=== PATIENT | female | born 2000 | race Caucasian/White ===

== ENCOUNTER 2022-05-12 06:50 | Inpatient (IN) ==
[2022-05-12] MEDS ORDERED: LIDOCAINE 1% LOCAL 20 ML VIAL INFIL PRN (08:12)
[2022-05-12] MEDS ORDERED: OXYTOCIN 30 UNITS/500 ML BAG IV PRN ×2 (08:12→09:25)
[2022-05-12 08:56] LABS: Hematocrit (blood only) 39.7 % (37.0-47.0); Hemoglobin 13.3 g/dl (12.0-16.0); Mean Corpuscular Hemoglobin 30.3 pg (25.0-34.0); Mean Corpuscular Hgb Conc 33.5 g/dL (32.0-36.0); Mean Corpuscular Volume 90.4 fL (80.0-100.0); Mean Platelet Volume 11.6 fL (9.4-12.4); Platelet Count 232 K/uL (130-400); RDW Coefficient of Variation 14.6 % (11.5-14.5); RDW Standard Deviation 48.6 fL (36.4-46.3); Red Blood Count 4.39 M/uL (4.20-5.40); White Blood Count 10.34 K/ul (4.8-10.8)
[2022-05-12 09:14] LABS: Albumin Globulin Ratio 1.1 (0.9-2); Albumin Level 3.4 gm/dl (3.4-5.0); BUN Creatinine Ratio 19.2 (10-20); Bilirubin,Total 0.4 mg/dl (0.2-1.0); Calcium 9.2 mg/dl (8.5-10.1); Creatinine Clr Calc Pharmacy 139.6 ml/min; Est GFR (African American) 135.5 ml/min; Est GFR (Non-African American) 116.9 ml/min; Globulin 3.1 gm/dl (2.5-4.0); Potassium 3.7 mmol/L (3.5-5.1); Total Protein 6.5 gm/dl (6.0-8.3)
[2022-05-12] MEDS: LACTATED RINGER'S 1,000 ML IV PRN ×3 (09:49→18:24)
--- NOTE | 2022-05-12 10:55 | History & Physical Report ---
Date of Service May 12, 2022 Assessment & Plan (1) 40 weeks gestation of : (2) PROM (premature rupture of membranes): (3) Gestational hypertension: (4) Thin meconium stained amniotic fluid: Plan Patient has been admitted and iv placed. Labs reviewed and pt aware of likely dx of gest htn as well as other dx above. Rec induction of labor and recommend pitocin and she denies questions. FHTs categ 1. What to expect with meconium noted at time of delivery reviewed and pt denies questions. History of Present Illness Chief Complaint: leaking fluid Primary Care Provider: Jose David Ramirez 21yo at 40+wks with cc of leaking fluid since 5am who presented to LD. Patient called me this am noting leaking fluid, clear to pink tinged and advised to come to LD. Evaluated by nursing with gross srom, green tinged fluid and cx 1cm. Bps elevated on arrival and pt continues to deny aviles or visual change or ruq pain. No n/v. No worsening swelling. PNC uncomplicated PNL rh pos, ri, gbs neg OBH: g1 GYNH: nl paps, no stds Allergies Allergy/AdvReac Type Severity Reaction Status Date / Time No Known Allergies Allergy Verified 05/12/22 07:25 Home Medications Medication Instructions Recorded Confirmed Type prenat.vits,elissa,[id number] 1 tab PO DAILY 09/27/21 05/12/22 History Patient History Medical History (Updated 05/12/22 @ 10:52 by Johnna Willis MD, FACOG) No known health problems Surgical History (Updated 05/12/22 @ 07:25 by Mackenzie Alcala RN) No history of previous surgery Family History (Updated 09/27/21 @ 07:38 by Yuly Cao) Mother Hypertension Other Diabetes Social History Smoking Status: Never smoker Hx Alcohol Use: No Hx Substance Use: No Preferred Language: Slovak Communication Ability: Effective Bookstore Clerk Required: No Beliefs That Will Affect Care: None marital status: marital status details: Presley (24) [phone] Current Living Situation: Spouse Current Living Situation Comment: Presley - current occupational status: employed current occupation: [employer] Other Information That Helps Us Care for You: No Feels Safe at Home: Yes Safety Concerns: Feels Safe At This Time Assistive Devices: None Review of Systems as per Subjective / HPI Physical Exam Constitutional: WD/WN, vitals as above Respiratory: normal respiratory effort, lungs clear to auscultation Cardiovascular: Rate/Rhythm: regular rate and regular rhythm Gastrointestinal (Abdomen): soft gravid nt efw 7-8# Musculoskeletal: no edema nontender calves Neurologic: grossly normal DTRs patellar +2, no clonus Psychiatric: A+Ox3, euthymic affect Genitourinary: Manual OB Exam: + cervical dilation 2 cm, + cervical effacement 60% and + station -1 OB Exam Monitor Tracing: + external FHT monitor used, + external uterine monitor used (irreg), + category I and + normal FHT variability Results & Data ([facility]) Vital Signs (Past 12 Hours) Vital Signs Temp Pulse Resp BP 05/12/22 07:11 98.2 F 20 05/12/22 09:51 112 H 05/12/22 09:51 133/88 05/12/22 09:07 99 H 05/12/22 09:07 140/85 05/12/22 08:26 108 H 05/12/22 08:26 153/96 H 05/12/22 08:11 112 H 05/12/22 08:11 165/102 H 05/12/22 07:56 112 H 05/12/22 07:56 147/99 H 05/12/22 07:41 108 H 05/12/22 07:41 143/100 H 05/12/22 07:26 109 H 05/12/22 07:26 161/98 H 05/12/22 07:08 120 H 157/108 H Coding Level of Care Code None Diagnoses 40 weeks gestation of Z3A.40 PROM (premature rupture of membranes) O42.90 Gestational hypertension O13.9 Thin meconium stained amniotic fluid P96.83
[2022-05-12] MEDS ORDERED: ePHEDrine sulfate 50 MG/ML AMP ONE (11:19)
[2022-05-12] MEDS ORDERED: SODIUM CHLORIDE 0.9% INJ 10 ML VIAL ONE (11:20)
[2022-05-12] MEDS ORDERED: LIDOCAINE 2%/EPINEPHRINE 1:200,000 20 ML SDV ONE ×2 (11:20→21:44)
[2022-05-12] MEDS ORDERED: fentaNYL citrate 100 MCG/2 ML VIAL ONE ×3 (11:20→21:45)
[2022-05-12] MEDS ORDERED: BUPIVACAINE 0.25% 30 ML VIAL ONE (11:20)
[2022-05-12] MEDS ORDERED: fentaNYL 2MCG/ML ROPIVACAINE 1.25MG/ML 100 ML BAG EPI ONE (11:21)
--- NOTE | 2022-05-12 12:18 | Anesthesiology Consultation ---
Date of Service May 12, 2022 Assessment & Plan Chart Review Chart Review: Acceptable Risk for Labor Epidural Consults Requested none History Height/Weight Height: 5 ft 3 in Weight: 104.326 kg Allergies Allergy/AdvReac Type Severity Reaction Status Date / Time No Known Allergies Allergy Verified 05/12/22 07:25 Medications Home Medications Medication Instructions Recorded Confirmed Last Taken prenat.vits,elissa,jcx-zgby-[id number] 1 tab PO DAILY 09/27/21 05/12/22 05/11/22 20:00 Active Medications Generic Name Dose Route Start Last Admin Trade Name Freq PRN Reason Stop Dose Admin Lactated Ringer's 1,000 mls @ 125 mls/hr 05/12/22 08:12 05/12/22 12:15 Lr IV 05/14/22 08:11 125 mls/hr .Q8H PRN Infusion L&D Protocol Protocol Oxytocin 30 units in 500 mls @ 7 mls/hr 05/12/22 09:25 05/12/22 12:15 Pitocin IV 05/14/22 09:24 0.54 units/hr .Q24H PRN 9 mls/hr Labor Induction/Augmentation Titration Protocol 0.42 UNITS/HR Past Medical History Medical History (Updated 05/12/22 @ 10:52 by Johnna Willis MD, FACOG) No known health problems Past Family History Family History (Updated 09/27/21 @ 07:38 by Yuly Cao) Mother Hypertension Other Diabetes Past Surgical History Surgical History (Updated 05/12/22 @ 07:25 by Mackenzie Alcala RN) No history of previous surgery Social History Smoking Status: Never smoker Hx Alcohol Use: No Hx Substance Use: No Physical Exam Vital Signs Last Vital Signs Temp 36.7 C 05/12/22 11:04 Pulse 99 H 05/12/22 12:17 Resp 20 05/12/22 11:04 BP 133/76 05/12/22 12:17 Pulse Ox 96 05/12/22 12:16 Testing Laboratory Results 05/12/22 08:42 05/12/22 08:42 Blood Type O Positive 05/12/22 08:42 Antibody Screen NEGATIVE 05/12/22 08:42
[2022-05-12] MEDS ORDERED: NALBUPHINE HCL INJ 10 MG/ML AMP IV PRN (12:20)
[2022-05-12] MEDS ORDERED: NALOXONE HCL 1 MG in SODIUM CHLORIDE 0.9% 1000ML 1,000 ML IV PRN (12:20)
[2022-05-12] MEDS ORDERED: NALOXONE HCL 0.4 MG/1 ML VIAL/CARP IV PRN (12:20)
[2022-05-12] MEDS ORDERED: diphenhydrAMINE 50 MG/ML VIAL IV PRN (12:20)
[2022-05-12] MEDS ORDERED: ePHEDrine sulfate 50 MG/ML AMP IV PRN (12:20)
--- NOTE | 2022-05-12 14:53 | Obstetrical Progress Note ---
Date of Service May 12, 2022 Assessment & Plan (1) 40 weeks gestation of : (2) Gestational hypertension: (3) PROM (premature rupture of membranes): (4) Thin meconium stained amniotic fluid: Plan will cont with pit, fhts categ 1. denies complaints. Admission and Anticipated Discharge Date Admission Date: May 12, 2022 Subjective comfortable with epidural. last check was by nurse 3cm Review of Systems Constitutional: as per Subjective / HPI Physical Exam Constitutional: WD/WN, vitals as above Genitourinary: OB Exam Monitor Tracing: + external FHT monitor used, + external uterine monitor used (q2 pit at 11), + category I and + normal FHT variability Results & Data ([facility]) Vital Signs (Past 12 Hours) Vital Signs Temp Pulse Resp BP Pulse Ox 05/12/22 07:11 98.2 F 20 05/12/22 14:46 20 05/12/22 14:46 20 05/12/22 14:46 96 05/12/22 14:46 103 H 05/12/22 12:16 99.0 F 05/12/22 14:41 97 05/12/22 14:41 111 H 05/12/22 14:36 96 05/12/22 14:36 99 H 05/12/22 14:34 87 05/12/22 14:34 131/73 05/12/22 14:31 97 05/12/22 14:31 100 H 05/12/22 14:26 96 05/12/22 14:26 104 H 05/12/22 14:21 96 05/12/22 14:21 104 H 05/12/22 14:19 106 H 05/12/22 14:19 125/76 05/12/22 14:16 20 05/12/22 14:16 98.6 F 20 05/12/22 14:00 20 05/12/22 14:00 20 05/12/22 14:16 97 05/12/22 14:16 111 H 05/12/22 13:30 20 05/12/22 13:30 20 05/12/22 14:11 97 05/12/22 14:11 114 H 05/12/22 14:06 96 05/12/22 14:06 98 H 05/12/22 14:03 105 H 05/12/22 14:03 133/71 05/12/22 14:01 97 05/12/22 14:01 96 H 05/12/22 13:46 20 05/12/22 13:46 20 05/12/22 13:56 96 05/12/22 13:56 107 H 05/12/22 13:51 97 05/12/22 13:51 110 H 05/12/22 13:49 105 H 05/12/22 13:49 131/72 05/12/22 13:46 96 05/12/22 13:46 110 H 05/12/22 13:41 96 05/12/22 13:41 113 H 05/12/22 13:38 94 05/12/22 13:38 102 H 05/12/22 13:36 95 05/12/22 13:36 99 H 05/12/22 13:33 94 05/12/22 13:33 101 H 05/12/22 13:33 137/77 05/12/22 13:31 96 05/12/22 13:31 96 H 05/12/22 13:27 93 05/12/22 13:27 97 H 05/12/22 13:26 96 05/12/22 13:26 91 H 05/12/22 13:22 94 05/12/22 13:22 91 H 05/12/22 13:15 18 05/12/22 13:15 18 05/12/22 13:21 94 05/12/22 13:21 92 H 05/12/22 13:00 16 05/12/22 13:00 16 05/12/22 12:45 18 05/12/22 12:45 18 05/12/22 12:30 16 05/12/22 12:30 16 05/12/22 13:18 93 H 05/12/22 13:18 134/76 05/12/22 12:15 18 05/12/22 12:15 18 05/12/22 13:16 95 05/12/22 13:16 94 H 05/12/22 13:11 94 05/12/22 13:11 93 H 05/12/22 13:06 95 05/12/22 13:06 89 05/12/22 13:05 93 05/12/22 13:05 89 05/12/22 13:04 90 05/12/22 13:04 137/82 03/05/23 13:01 95 05/12/22 13:01 109 H 05/12/22 13:00 93 05/12/22 13:00 86 05/12/22 12:56 94 05/12/22 12:56 87 05/12/22 12:53 94 05/12/22 12:53 89 05/12/22 12:51 95 05/12/22 12:51 84 05/12/22 12:48 100 H 05/12/22 12:48 139/74 05/12/22 12:46 96 05/12/22 12:47 94 05/12/22 12:46 86 05/12/22 12:47 85 05/12/22 12:41 97 05/12/22 12:41 88 05/12/22 12:36 96 05/12/22 12:36 89 05/12/22 12:33 88 05/12/22 12:33 137/79 05/12/22 12:31 96 05/12/22 12:31 90 05/12/22 12:26 95 05/12/22 12:26 91 H 05/12/22 12:21 96 05/12/22 12:21 86 05/12/22 12:17 99 H 05/12/22 12:17 133/76 05/12/22 12:16 96 05/12/22 12:16 97 H 05/12/22 09:07 20 05/12/22 09:07 98.2 F 20 05/12/22 12:11 95 05/12/22 12:11 99 H 05/12/22 12:11 128/73 05/12/22 12:09 86 05/12/22 12:09 134/77 05/12/22 12:07 90 05/12/22 12:07 138/77 05/12/22 12:06 96 05/12/22 12:06 93 H 05/12/22 12:05 88 05/12/22 12:05 145/81 H 05/12/22 12:03 94 05/12/22 12:03 94 H 05/12/22 12:03 134/81 05/12/22 12:01 96 05/12/22 12:01 95 H 05/12/22 11:56 97 05/12/22 11:56 101 H 05/12/22 11:51 97 05/12/22 11:51 96 H 05/12/22 11:52 102 H 05/12/22 11:52 162/97 H 05/12/22 11:04 20 05/12/22 11:04 98.1 F 20 05/12/22 11:04 85 05/12/22 11:04 158/96 H 05/12/22 10:53 96 H 05/12/22 10:53 142/103 H 05/12/22 09:51 112 H 05/12/22 09:51 133/88 05/12/22 09:07 99 H 05/12/22 09:07 140/85 05/12/22 08:26 108 H 05/12/22 08:26 153/96 H 05/12/22 08:11 112 H 05/12/22 08:11 165/102 H 05/12/22 07:56 112 H 05/12/22 07:56 147/99 H 05/12/22 07:41 108 H 05/12/22 07:41 143/100 H 05/12/22 07:26 109 H 05/12/22 07:26 161/98 H 05/12/22 07:08 120 H 157/108 H PG Care Time/CCT Total # of Minutes Spent Total Time Spent with Patient: Total time spent is greater than 50% in coordination of care (as documented) at patient's floor/unit and/or counseling patient: Coding Level of Care Code None Diagnoses 40 weeks gestation of Z3A.40 Gestational hypertension O13.9 PROM (premature rupture of membranes) O42.90 Thin meconium stained amniotic fluid P96.83
[2022-05-12] MEDS ORDERED: NURSING L&D Epidural Breakthrough Pain Update ONE (17:32)
--- NOTE | 2022-05-12 18:25 | Communication Note ---
Date of Service: May 12, 2022 pt c/o pain. 2% lidocaine 5cc plus 100mcg fentanyl given to epidural.
--- NOTE | 2022-05-12 18:45 | Labor Progress Brief Note ---
Date of Service May 12, 2022 Subjective just got rebolused and feeling more relief of her pain Assessment & Plan (1) 40 weeks gestation of : (2) PROM (premature rupture of membranes): (3) Gestational hypertension: (4) Thin meconium stained amniotic fluid: Plan good cx change. fhts categ 1. c/w pit. Admission and Anticipated Discharge Date Admission Date: May 12, 2022 Physical Exam Constitutional: WD/WN, vitals as above Genitourinary: Manual OB Exam: + cervical dilation (6), + cervical effacement (75%) and + station 0 OB Exam Monitor Tracing: + external FHT monitor used, + external uterine monitor used (q2 pit @ 13), + category I and + normal FHT variability Results & Data ([facility]) Vital Signs (Past 12 Hours) Vital Signs Temp Pulse Resp BP Pulse Ox 05/12/22 07:11 98.2 F 20 05/12/22 18:41 98 05/12/22 18:41 120 H 05/12/22 18:37 117 H 05/12/22 18:37 140/76 05/12/22 18:36 96 05/12/22 18:36 121 H 05/12/22 18:31 98 05/12/22 18:31 118 H 05/12/22 18:32 115 H 05/12/22 18:32 132/69 05/12/22 18:27 112 H 05/12/22 18:27 137/84 05/12/22 18:16 20 05/12/22 18:16 20 05/12/22 18:26 97 05/12/22 18:26 107 H 05/12/22 18:21 98 05/12/22 18:21 110 H 05/12/22 18:22 106 H 05/12/22 18:22 145/91 H 05/12/22 18:20 106 H 05/12/22 18:20 143/85 H 05/12/22 18:16 97 05/12/22 18:16 105 H 05/12/22 18:11 97 05/12/22 18:11 105 H 05/12/22 18:06 98 05/12/22 18:06 106 H 05/12/22 17:46 20 05/12/22 17:46 20 05/12/22 18:04 106 H 05/12/22 18:04 124/75 05/12/22 18:01 94 05/12/22 18:01 103 H 05/12/22 17:18 18 05/12/22 17:18 18 05/12/22 18:00 94 05/12/22 18:00 99 H 05/12/22 16:46 20 05/12/22 16:46 20 05/12/22 17:56 94 05/12/22 17:56 97 H 05/12/22 17:54 94 05/12/22 17:54 93 H 05/12/22 17:51 94 05/12/22 17:51 98 H 05/12/22 17:49 96 H 05/12/22 17:49 125/68 05/12/22 17:48 94 05/12/22 17:48 105 H 05/12/22 17:46 94 05/12/22 17:46 105 H 05/12/22 17:41 95 05/12/22 17:41 94 H 05/12/22 17:41 94 05/12/22 17:41 106 H 05/12/22 17:36 97 05/12/22 17:36 103 H 05/12/22 17:33 98.8 F 05/12/22 17:33 100 H 05/12/22 17:33 142/85 H 05/12/22 17:31 97 05/12/22 17:31 100 H 05/12/22 17:26 99 05/12/22 17:26 112 H 05/12/22 17:21 98 05/12/22 17:21 97 H 05/12/22 17:18 110 H 05/12/22 17:18 151/86 H 05/12/22 17:16 98 05/12/22 17:16 110 H 05/12/22 17:11 98 05/12/22 17:11 111 H 05/12/22 17:06 100 05/12/22 17:06 114 H 05/12/22 17:04 107 H 05/12/22 17:04 151/74 H 05/12/22 17:01 98 05/12/22 17:01 101 H 05/12/22 16:56 100 05/12/22 16:56 107 H 05/12/22 16:51 99 05/12/22 16:51 106 H 05/12/22 16:50 92 05/12/22 16:50 98 H 05/12/22 16:48 96 H 05/12/22 16:48 161/99 H 05/12/22 16:46 99 05/12/22 16:46 92 H 05/12/22 16:41 98 05/12/22 16:41 93 H 05/12/22 16:36 98 05/12/22 16:36 91 H 05/12/22 16:33 88 05/12/22 16:33 156/94 H 05/12/22 16:31 99 05/12/22 16:31 100 H 05/12/22 16:26 100 05/12/22 16:26 98 H 05/12/22 16:21 96 05/12/22 16:21 90 05/12/22 16:18 90 05/12/22 16:18 151/94 H 05/12/22 16:16 20 05/12/22 16:16 20 05/12/22 16:16 97 05/12/22 16:16 90 05/12/22 16:11 96 05/12/22 16:11 97 H 05/12/22 16:06 97 05/12/22 16:06 88 05/12/22 16:05 93 H 05/12/22 16:05 148/96 H 05/12/22 16:01 97 05/12/22 16:01 99 H 05/12/22 15:56 98 05/12/22 15:56 85 05/12/22 15:51 97 05/12/22 15:51 90 05/12/22 15:46 20 05/12/22 15:46 98.4 F 20 05/12/22 15:16 20 05/12/22 15:16 20 05/12/22 15:49 89 05/12/22 15:49 137/84 05/12/22 15:46 96 05/12/22 15:46 90 05/12/22 15:43 93 05/12/22 15:43 91 H 05/12/22 15:41 97 05/12/22 15:41 117 H 05/12/22 15:36 97 05/12/22 15:36 102 H 05/12/22 15:33 101 H 05/12/22 15:33 127/77 05/12/22 15:31 97 05/12/22 15:31 102 H 05/12/22 15:26 96 05/12/22 15:26 102 H 05/12/22 15:21 97 05/12/22 15:21 104 H 05/12/22 15:19 107 H 05/12/22 15:19 134/87 05/12/22 15:16 96 05/12/22 15:16 111 H 05/12/22 15:11 96 05/12/22 15:11 101 H 05/12/22 15:06 95 05/12/22 15:06 105 H 05/12/22 15:03 109 H 05/12/22 15:03 124/70 05/12/22 15:01 96 05/12/22 15:01 104 H 05/12/22 14:56 96 05/12/22 14:56 100 H 05/12/22 14:51 97 05/12/22 14:51 103 H 05/12/22 14:48 101 H 05/12/22 14:48 128/70 05/12/22 14:46 20 05/12/22 14:46 20 05/12/22 14:46 96 05/12/22 14:46 103 H 05/12/22 12:16 99.0 F 05/12/22 14:41 97 05/12/22 14:41 111 H 05/12/22 14:36 96 05/12/22 14:36 99 H 05/12/22 14:34 87 05/12/22 14:34 131/73 05/12/22 14:31 97 05/12/22 14:31 100 H 05/12/22 14:26 96 05/12/22 14:26 104 H 05/12/22 14:21 96 05/12/22 14:21 104 H 05/12/22 14:19 106 H 05/12/22 14:19 125/76 05/12/22 14:16 20 05/12/22 14:16 98.6 F 20 05/12/22 14:00 20 05/12/22 14:00 20 05/12/22 14:16 97 05/12/22 14:16 111 H 05/12/22 13:30 20 05/12/22 13:30 20 03/05/23 14:11 97 05/12/22 14:11 114 H 05/12/22 14:06 96 05/12/22 14:06 98 H 05/12/22 14:03 105 H 05/12/22 14:03 133/71 05/12/22 14:01 97 05/12/22 14:01 96 H 05/12/22 13:46 20 05/12/22 13:46 20 05/12/22 13:56 96 05/12/22 13:56 107 H 05/12/22 13:51 97 05/12/22 13:51 110 H 05/12/22 13:49 105 H 05/12/22 13:49 131/72 05/12/22 13:46 96 05/12/22 13:46 110 H 05/12/22 13:41 96 05/12/22 13:41 113 H 05/12/22 13:38 94 05/12/22 13:38 102 H 05/12/22 13:36 95 05/12/22 13:36 99 H 05/12/22 13:33 94 05/12/22 13:33 101 H 05/12/22 13:33 137/77 05/12/22 13:31 96 05/12/22 13:31 96 H 05/12/22 13:27 93 05/12/22 13:27 97 H 05/12/22 13:26 96 05/12/22 13:26 91 H 05/12/22 13:22 94 05/12/22 13:22 91 H 05/12/22 13:15 18 05/12/22 13:15 18 05/12/22 13:21 94 05/12/22 13:21 92 H 05/12/22 13:00 16 05/12/22 13:00 16 05/12/22 12:45 18 05/12/22 12:45 18 05/12/22 12:30 16 05/12/22 12:30 16 05/12/22 13:18 93 H 05/12/22 13:18 134/76 05/12/22 12:15 18 05/12/22 12:15 18 05/12/22 13:16 95 05/12/22 13:16 94 H 05/12/22 13:11 94 05/12/22 13:11 93 H 05/12/22 13:06 95 05/12/22 13:06 89 05/12/22 13:05 93 05/12/22 13:05 89 05/12/22 13:04 90 05/12/22 13:04 137/82 05/12/22 13:01 95 05/12/22 13:01 109 H 05/12/22 13:00 93 05/12/22 13:00 86 05/12/22 12:56 94 05/12/22 12:56 87 05/12/22 12:53 94 05/12/22 12:53 89 05/12/22 12:51 95 05/12/22 12:51 84 05/12/22 12:48 100 H 05/12/22 12:48 139/74 05/12/22 12:46 96 05/12/22 12:47 94 05/12/22 12:46 86 05/12/22 12:47 85 05/12/22 12:41 97 05/12/22 12:41 88 05/12/22 12:36 96 05/12/22 12:36 89 05/12/22 12:33 88 05/12/22 12:33 137/79 05/12/22 12:31 96 05/12/22 12:31 90 05/12/22 12:26 95 05/12/22 12:26 91 H 05/12/22 12:21 96 05/12/22 12:21 86 05/12/22 12:17 99 H 05/12/22 12:17 133/76 05/12/22 12:16 96 05/12/22 12:16 97 H 05/12/22 09:07 20 05/12/22 09:07 98.2 F 20 05/12/22 12:11 95 05/12/22 12:11 99 H 05/12/22 12:11 128/73 05/12/22 12:09 86 05/12/22 12:09 134/77 05/12/22 12:07 90 05/12/22 12:07 138/77 05/12/22 12:06 96 05/12/22 12:06 93 H 05/12/22 12:05 88 05/12/22 12:05 145/81 H 05/12/22 12:03 94 05/12/22 12:03 94 H 05/12/22 12:03 134/81 05/12/22 12:01 96 05/12/22 12:01 95 H 05/12/22 11:56 97 05/12/22 11:56 101 H 05/12/22 11:51 97 05/12/22 11:51 96 H 05/12/22 11:52 102 H 05/12/22 11:52 162/97 H 05/12/22 11:04 20 05/12/22 11:04 98.1 F 20 05/12/22 11:04 85 05/12/22 11:04 158/96 H 05/12/22 10:53 96 H 05/12/22 10:53 142/103 H 05/12/22 09:51 112 H 05/12/22 09:51 133/88 05/12/22 09:07 99 H 05/12/22 09:07 140/85 05/12/22 08:26 108 H 05/12/22 08:26 153/96 H 05/12/22 08:11 112 H 05/12/22 08:11 165/102 H 05/12/22 07:56 112 H 05/12/22 07:56 147/99 H 05/12/22 07:41 108 H 05/12/22 07:41 143/100 H 05/12/22 07:26 109 H 05/12/22 07:26 161/98 H 05/12/22 07:08 120 H 157/108 H Coding Level of Care Code None Diagnoses 40 weeks gestation of Z3A.40 PROM (premature rupture of membranes) O42.90 Gestational hypertension O13.9 Thin meconium stained amniotic fluid P96.83
[2022-05-12] MEDS: fentaNYL 2MCG/ML ROPIVACAINE 1.25MG/ML 100 ML BAG EPI PRN (19:11)
[2022-05-12] MEDS ORDERED: ROPIVACAINE 0.5% 5 MG/ML 30 ML VIAL ONE (21:44)
--- NOTE | 2022-05-12 21:51 | Communication Note ---
Date of Service: May 12, 2022 pt c/o pressure pain with some sharp pain break through. pt given a bolus of 100 mcg fentanyl, 2 cc 2% lido with epi, and 3cc of .5% ropivicaine. vss.
[2022-05-13] MEDS: fentaNYL 2MCG/ML ROPIVACAINE 1.25MG/ML 100 ML BAG EPI PRN (00:27)
[2022-05-13] MEDS ORDERED: BENZOCAINE 20% AER SPR 82.5 GM CAN EXT PRN (01:18)
[2022-05-13] MEDS ORDERED: DIPHTHERIA/TETANUS/PERTUSSIS 0.5mL SYR/VIAL (Age 7+yrs) IM ONE (01:18)
[2022-05-13] MEDS ORDERED: bisacodyL 10 MG SUPP PR PRN (01:18)
[2022-05-13] MEDS ORDERED: oxyCODONE/ACETAMINOPHEN 5mg/325mg TAB PO PRN (01:18)
[2022-05-13] MEDS ORDERED: OXYTOCIN 30 UNITS/500 ML BAG IV PRN (01:18)
[2022-05-13] MEDS ORDERED: OXYTOCIN 20 UNITS in LACTATED RINGER'S 1,000 ML IV SCH (01:18)
[2022-05-13] MEDS ORDERED: ACETAMINOPHEN 325 MG TAB PO PRN (01:18)
[2022-05-13] MEDS ORDERED: HYDROCORTISONE ACETATE 25 MG SUPP PR PRN (01:18)
--- NOTE | 2022-05-13 01:18 | Delivery Summary ---
Vaginal Delivery Summary Date of Service May 13, 2022 Vaginal Delivery Summary and 2nd Degree LAC The patient dilated to complete and pushed to deliver a viable female infant Apgars 8 and 9 via over 2nd degree perineal laceration. Mouth and nose bulb suctioned at perineum. Loose nuchal x 1 noted. Moderate shoulder dystocia noted and relieved with Yunior maneuvers and suprapubic pressure and continued maternal expulsive efforts. Body delivered with some effort as well. Infant cried at and was stimulated but quickly to cord was doubly clamped and cut and infant to radiant warmer for drying and attention. Placenta delivered spontaneously and intact, three-vessel cord. Hemostasis achieved with dilute pitocin and uterine massage and drainage of the bladder for approximately 300 cc under sterile conditions. Cervix and sulci intact. Laceration repaired in lay ers with 3-0 vicryl and bilateral labial tears reapproximated with 4-0 vicryl. EBL 300 cc. Mother and baby stable in recovery. Events of delivery including moderate shoulder dystocia and methods to relieve reviewed in detail with patient. [facility] – [place], [place] Vaginal Delivery Charge Delivery Type Details: and 2nd Degree LAC
[2022-05-13] MEDS: IBUPROFEN 600 MG TAB PO PRN ×2 (02:43→19:18)
--- NOTE | 2022-05-13 03:07 | Anesthesia Procedure Note ---
Date of Service May 13, 2022 Anesthesia Post Epidural Note Vital Signs Vital Signs: Temp Pulse Resp BP Pulse Ox 36.9 C 118 H 18 122/68 72 L 05/13/22 01:15 05/13/22 03:00 05/13/22 02:45 05/13/22 03:00 05/13/22 01:08 Pain Intensity Abdomen: Pain Intensity: 2 Notes Mental Status: alert / awake / arousable and participated in evaluation Nausea / Vomiting: adequately controlled Pain: adequately controlled Airway Patency, RR, SpO2: stable & adequate BP & HR: stable & adequate Hydration State: stable & adequate Neuraxial Anesthesia: was administered and sensory block is resolving Anesthetic Complications: no major complications apparent and Pt Satisfied with anesthetic care Epidural: Removed without complications and With tip intact
[2022-05-13] MEDS ORDERED: SODIUM CHLORIDE 0.9% 250 ML IV PRN (04:26)
[2022-05-13] MEDS: DOCUSATE SODIUM 100 MG CAP PO SCH ×2 (07:50→21:31)
[2022-05-13] MEDS: PRENATAL VITAMIN 1 TAB PO SCH (07:50)
--- NOTE | 2022-05-14 06:20 | Obstetrical Progress Note ---
Date of Service <Trinidad Multani MD - Last Filed: 05/14/22 07:23> May 14, 2022 Assessment & Plan <Trinidad Multani MD - Last Filed: 05/14/22 07:23> (1) care following vaginal delivery: 21 y/o female presented with SROM then proceeded to have a vaginal delivery now PPD1. GBS neg, RI, Rh pos. Tolerating PO. Satisfactory post progress. Encourage ambulation. <Justine Rueda MD, FACOG - Last Filed: 05/14/22 07:30> (1) care following vaginal delivery: Subjective <Trinidad Multani MD - Last Filed: 05/14/22 07:23> Ambulation: ambulating normally Voiding: no voiding problems Passing Gas:: Yes Diet Tolerance:: regular diet Lochia:: Small Feeding Type:: breast feeding Physical Exam <Trinidad Multani MD - Last Filed: 05/14/22 07:23> Gen: well appearing female in NAD HEENT: AT NC Resp: no increased work of breathing CV: clinically well perfused : uterus firm non-tender at the level of the umbilicus Psych: appropriate mood and affect Neuro: alert and oriented Results & Data ([facility]) <Trinidad Multani MD - Last Filed: 05/14/22 07:23> Vital Signs (Past 12 Hours) Vital Signs Temp Pulse Resp BP Pulse Ox O2 Del Method 05/13/22 23:01 36.7 C 96 H 16 133/77 96 Room Air 05/13/22 19:15 36.7 C 107 H 16 138/95 99 Room Air Laboratory Results 05/12/22 08:42 05/12/22 08:42 <Justine Rueda MD, FACOG - Last Filed: 05/14/22 07:30> Co-Signing Physician Notes Resident Physician Supervision Note: I interviewed and examined the patient. Discussed with Dr. Multani and agree with findings and plan as documented in the note. Any exceptions or clarifications are listed here: [None] Documented By: Justine Rueda MD, FACOG Resident Activity Tracking <Trinidad Multani MD - Last Filed: 05/14/22 07:23> Resident Involvement: Resident Care Provided Care Provided: OB Delivery
[2022-05-14] MEDS: DOCUSATE SODIUM 100 MG CAP PO SCH ×2 (07:36→20:44)
[2022-05-14] MEDS: IBUPROFEN 600 MG TAB PO PRN ×3 (07:36→20:44)
[2022-05-14] MEDS: PRENATAL VITAMIN 1 TAB PO SCH (07:36)
--- NOTE | 2022-05-15 05:22 | Obstetrical Progress Note ---
Date of Service <Trinidad Multani MD - Last Filed: 05/15/22 06:26> May 15, 2022 Assessment & Plan <Trinidad Multani MD - Last Filed: 05/15/22 06:26> (1) care following vaginal delivery: 21 y/o female presented with SROM then proceeded to have a vaginal delivery now PPD2. GBS neg, RI, Rh pos. Tolerating PO. Satisfactory post progress. Encourage ambulation. <Sandra Cespedes MD - Last Filed: 05/15/22 07:21> (1) care following vaginal delivery: Subjective <Trinidad Multani MD - Last Filed: 05/15/22 06:26> Ambulation: ambulating normally Voiding: no voiding problems Passing Gas:: Yes Diet Tolerance:: regular diet Lochia:: Small Feeding Type:: breast feeding Physical Exam <Trinidad Multani MD - Last Filed: 05/15/22 06:26> Gen: well appearing female in NAD HEENT: AT NC Resp: no increased work of breathing CV: clinically well perfused : uterus firm non-tender at the level of the umbilicus Psych: appropriate mood and affect Neuro: alert and oriented Results & Data ([place]) <Trinidad Multani MD - Last Filed: 05/15/22 06:26> Vital Signs (Past 12 Hours) Vital Signs Temp Pulse Resp BP 05/15/22 00:25 36.7 C 85 18 151/88 H 05/14/22 20:45 36.4 C L 87 18 153/99 H Laboratory Results 05/12/22 08:42 05/12/22 08:42 <Sandra Cespedes MD - Last Filed: 05/15/22 07:21> Co-Signing Physician Notes Resident Physician Supervision Note: I interviewed and examined the patient. Discussed with Dr. Multani and agree with findings and plan as documented in the note. Any exceptions or clarifications are listed here: Patient's last three BP's have been hypertension, and the trend is upwards even when she is resting overnight. No PICKETT, RUQ pain, vision changes, but + worsening edema (not entirely unexpected ). Platelets normal. LFT's not checked today, and given the foregoing, will not check them as suspicion of preeclampsia at this time is low, but certainly she could be headed that way if we don't intervene. Will start treatment for hypertension with 200mg PO labetalol to be given now. Patient will be kept in hospital today both to allow assessment of response to beta blockade and because infant is also going to be held for bilirubin management per peds. If BP normalizes may need to go home on this med with a 1 wk BP check to assess ongoing need. Pt and FOB informed and had opportunity to ask any questions. Documented By: Sandra Cespedes MD, FACOG Resident Activity Tracking <Trinidad Multani MD - Last Filed: 05/15/22 06:26> Resident Involvement: Resident Care Provided Care Provided: OB Delivery
[2022-05-15 06:38] LABS: Hematocrit (blood only) 33.4 % (37.0-47.0); Hemoglobin 11.4 g/dl (12.0-16.0); Mean Corpuscular Hemoglobin 30.8 pg (25.0-34.0); Mean Corpuscular Hgb Conc 34.1 g/dL (32.0-36.0); Mean Corpuscular Volume 90.3 fL (80.0-100.0); Mean Platelet Volume 11.3 fL (9.4-12.4); Platelet Count 239 K/uL (130-400); RDW Coefficient of Variation 14.4 % (11.5-14.5); RDW Standard Deviation 47.3 fL (36.4-46.3); White Blood Count 8.57 K/ul (4.8-10.8)
[2022-05-15] MEDS: LABETALOL HCL 100 MG TAB PO SCH ×2 (07:45→20:51)
[2022-05-15] MEDS: PRENATAL VITAMIN 1 TAB PO SCH (08:05)
[2022-05-15] MEDS: DOCUSATE SODIUM 100 MG CAP PO SCH ×2 (08:05→20:51)
[2022-05-15] MEDS: IBUPROFEN 600 MG TAB PO PRN (16:22)
--- NOTE | 2022-05-16 06:23 | Obstetrical Progress Note ---
Date of Service <Trinidad Multani MD - Last Filed: 05/16/22 07:02> May 16, 2022 Assessment & Plan <Trinidad Multani MD - Last Filed: 05/16/22 07:02> (1) care following vaginal delivery: 21 y/o female presented with SROM then proceeded to have a vaginal delivery now PPD4. GBS neg, RI, Rh pos. Tolerating PO. Satisfactory post progress. Encourage ambulation. Patient did have several elevated BPs over the last 24 hours. Most recent BPs have been normotensive. No PICKETT, RUQ, vision changes. Continue to monitor. <Frederick Craven MD - Last Filed: 05/16/22 08:25> (1) care following vaginal delivery: Subjective <Trinidad Multani MD - Last Filed: 05/16/22 07:02> Ambulation: ambulating normally Voiding: no voiding problems Passing Gas:: Yes Diet Tolerance:: regular diet Lochia:: Small Feeding Type:: breast feeding Physical Exam <Trinidad Multani MD - Last Filed: 05/16/22 07:02> Gen: well appearing female in NAD HEENT: AT NC Resp: no increased work of breathing CV: clinically well perfused, no calf tenderness : uterus firm non-tender at the level of the umbilicus Psych: appropriate mood and affect Neuro: alert and oriented Results & Data (MN) <Trinidad Multani MD - Last Filed: 05/16/22 07:02> Vital Signs (Past 12 Hours) Vital Signs Temp Pulse Resp BP Pulse Ox O2 Del Method 05/16/22 03:20 98 H 115/82 05/15/22 23:55 36.6 C 80 18 133/86 98 Room Air 05/15/22 20:45 36.6 C 82 18 146/87 H 97 Room Air <Frederick Craven MD - Last Filed: 05/16/22 08:25> Co-Signing Physician Notes patient seen and evaluated and agree with the findings and plan. Stable for discharge. Resident Activity Tracking <Trinidad Multani MD - Last Filed: 05/16/22 07:02> Resident Involvement: Resident Care Provided Care Provided: OB Delivery
[2022-05-16] MEDS: PRENATAL VITAMIN 1 TAB PO SCH (08:22)
[2022-05-16] MEDS: LABETALOL HCL 100 MG TAB PO SCH (08:22)
[2022-05-16] MEDS: IBUPROFEN 600 MG TAB PO PRN (08:22)
[2022-05-16] MEDS: DOCUSATE SODIUM 100 MG CAP PO SCH (08:22)
--- NOTE | 2022-05-17 13:17 | Coding Query ---
CODING QUERY To promote full compliance with coding requirements relating to patient care, provider participation is requested in all cases of cuff runner uncertainty. Please assist us with the question(s) below: Coding Question(s): Gestational hypertension and puerperal hypertension are both documented, is the puerperal hypertension a continuation of the gestational HTN or is it a new separably treatable condition? Physician's Response(s): same thing, i have never used term puerperal htn so i would use gest htn Thank you Sandra Holm Principal Diagnosis: "that condition established after study, to be chiefly responsible for occasioning the admission of the patient to the hospital for care." Co-Existing Principal Diagnosis: "when two or more diagnoses equally meet the criteria for principal diagnosis as determined by the circumstances of admission, diagnostic work up, and/or therapy provided, and the Alphabetic Index, Tabular List, or another coding guideline does not provide sequencing direction, any one of the diagnoses may be sequenced first." "When the physician has documented what appears to be a current diagnosis in the body of the record, but has not included the diagnosis in the final diagnostic statement, the physician should be asked whether the diagnosis should be added." (Source [facility] 2 QTR90. p3-4) SAMMY
== END 2022-05-16 11:45 | disposition home or self-care (01) | DRG 807 ==
LOC: OPB 06:50 → 4S1 07:00 → 4E2 05-13 04:31